=== PATIENT | female | born 1995 | race Caucasian/White ===

== ENCOUNTER → 2017-02-20 | Outpatient (CLI) | payer MEDICAID ==
[~2017-02-20] MED LIST: PRENATAL VITAM1 EAC1 PO
== END | disposition home or self-care (01) ==
LOC: RAD.S 16:23
DX: Z36 Encounter for antenatal screening of mother (principal); O43.892 Other placental disorders, second trimester; Z3A.17 17 weeks gestation of pregnancy

== ENCOUNTER → 2017-03-28 | Outpatient (CLI) | payer MEDICAID | END | disposition home or self-care (01) | LOC: RAD.S 18:16 | DX: Z36 Encounter for antenatal screening of mother (principal); Z3A.22 22 weeks gestation of pregnancy ==

== ENCOUNTER → 2017-06-25 | Outpatient (CLI) | payer MEDICAID | END | disposition home or self-care (01) | LOC: RAD.S 07:37 | DX: R10.11 Right upper quadrant pain (principal); K76.0 Fatty (change of) liver, not elsewhere classified ==